=== PATIENT | female | born 1990 | race Two or more races ===

== ENCOUNTER 2016-10-15 14:21 | Emergency (ER) | payer OTHER ==
--- NOTE | 2016-10-15 14:40 | ER Document Report ---
ED Medical Screen (RME) - General Stated Complaint: VOMITING Notes: 26 yo 9 wks gestation c/o n/v since Jul. Seen by OB yesterday for same, given phenergan PO but still vomiting. Told to come to ER. No abdominal pain or vaginal bleeding - Related Data Allergies/Adverse Reactions: No Known Allergies Allergy (Unverified 10/15/16 14:37) Physical Exam - Vital signs Vitals: Temp Pulse Resp BP Pulse Ox 98.0 F 91 16 114/73 100 10/15/16 14:26 10/15/16 14:26 10/15/16 14:26 10/15/16 14:26 10/15/16 14:26 Course - Vital Signs Vital signs: Temp Pulse Resp BP Pulse Ox 98.0 F 91 16 114/73 100 10/15/16 14:26 10/15/16 14:26 10/15/16 14:26 10/15/16 14:26 10/15/16 14:26
[2016-10-15 15:02] LABS: ABSOLUTE EOSINOPHILS # (AUTO) 0.1 10^3/uL (0.0-0.6); ABSOLUTE LYMPHOCYTES (AUTO) 1.4 10^3/uL (0.5-4.7); ABSOLUTE MONOCYTES (AUTO) 0.5 10^3/uL (0.1-1.4); ABSOLUTE NEUT (AUTO) 4.9 10^3/uL (1.7-8.2); BASOPHILS % (AUTO) 0.5 % (0-2); EOSINOPHILS % (AUTO) 0.8 % (0-6); HEMATOCRIT 34.4 % (36.0-47.0); HEMOGLOBIN 11.2 g/dL (12.0-15.5); HGB HCT DIFFERENCE -0.8; LYMPHOCYTES % (AUTO) 20.2 % (13-45); MEAN CORPUSCULAR HEMOGLOBIN 25.6 pg (27.0-33.4); MEAN CORPUSCULAR HGB CONC 32.4 g/dL (32.0-36.0); MEAN CORPUSCULAR VOLUME 79 fl (80-97); MONOCYTES % (AUTO) 7.3 % (3-13); RED BLOOD COUNT 4.37 10^6/uL (3.72-5.28); RED CELL DISTRIBUTION WIDTH 18.4 % (11.5-14.0); SEGMENTED NEUTROPHILS % (AUTO) 71.2 % (42-78); WHITE BLOOD COUNT 6.9 10^3/uL (4.0-10.5)
[2016-10-15 15:10] LABS: APPEARANCE,URINE CLOUDY; BILIRUBIN,URINE NEGATIVE (NEGATIVE); GLUCOSE, URINE NEGATIVE (NEGATIVE); KETONES,URINE 20 mg/dL (NEGATIVE); LEUKOCYTE ESTERASE,URINE LARGE (NEGATIVE); NITRITE,URINE NEGATIVE (NEGATIVE); PROTEIN,URINE 100 mg/dL (NEGATIVE); URINE SPECIFIC GRAVITY 1.033
[2016-10-15 15:22] LABS: ALANINE AMINOTRANSFERASE 21 U/L (9-52); ALBUMIN 4.8 g/dL (3.5-5.0); ALKALINE PHOSPHATASE 55 U/L (38-126); ANION GAP 12 (5-19); ASPARTATE AMINO TRANSFERASE 25 U/L (14-36); BILIRUBIN,DIRECT 0.1 mg/dL (0.0-0.4); BILIRUBIN,TOTAL 0.5 mg/dL (0.2-1.3); BLOOD UREA NITROGEN 14 mg/dL (7-20); CALCIUM 10.3 mg/dL (8.4-10.2); CARBON DIOXIDE 27 mmol/L (22-30); CHLORIDE 102 mmol/L (98-107); GLUCOSE 87 mg/dL (75-110); SODIUM 140.7 mmol/L (137-145)
[2016-10-15] MEDS ORDERED: NORMAL SALINE 1000 ML 2,000 ML IV ONE (18:01)
--- NOTE | 2016-10-15 18:02 | ER Document Report ---
ED GI/ - General Chief Complaint: Nausea/Vomiting Stated Complaint: VOMITING Time seen by provider: 18:02 Mode of Arrival: Ambulatory Information source: Patient Notes: 26-year-old is complaining of persistent nausea and vomiting with this . She is 9 weeks with an IUP shown on ultrasound 2 weeks ago. She was told to come into the emergency department for dehydration if the Phenergan pills do not work. in the last 24 hours She was onDicligis prior to that which did not help. She is unable to keep the Phenergan pills down but she is willing to try a Phenergan suppository in the emergency department. No fever or chills. No abdominal pain. No vaginal bleeding. No dysuria. TRAVEL OUTSIDE OF THE [place] IN LAST 30 DAYS: No - Related Data Allergies/Adverse Reactions: No Known Allergies Allergy (Unverified 10/15/16 14:37) Past Medical History - General Information source: Patient - Social History Smoking Status: Never Smoker Chew tobacco use (# tins/day): No Frequency of alcohol use: None Drug Abuse: None Lives with: Spouse/Significant other Family History: Reviewed & Not Pertinent Patient has suicidal ideation: No Patient has homicidal ideation: No - Medical History Notes: Renal/ Medical History: Denies: Hx Peritoneal Dialysis Review of Systems - Review of Systems Constitutional: No symptoms reported EENT: No symptoms reported Cardiovascular: No symptoms reported Respiratory: No symptoms reported Gastrointestinal: See HPI Genitourinary: No symptoms reported Female Genitourinary: No symptoms reported Musculoskeletal: No symptoms reported Skin: No symptoms reported Hematologic/Lymphatic: No symptoms reported Neurological/Psychological: No symptoms reported Physical Exam - Vital signs Vitals: Temp Pulse Resp BP Pulse Ox 98.0 F 91 16 114/73 100 10/15/16 14:26 10/15/16 14:26 10/15/16 14:26 10/15/16 14:26 10/15/16 14:26 Interpretation: Normal - Notes Notes: Looks dry - General General appearance: Alert In distress: None - HEENT Head: Normocephalic, Atraumatic Eyes: Normal Conjunctiva: Normal Pupils: PERRL Neck: Supple. No: Lymphadenopathy - Respiratory Respiratory status: No respiratory distress Chest status: Nontender Breath sounds: Normal Chest palpation: Normal - Cardiovascular Rhythm: Regular Heart sounds: Normal auscultation Murmur: No - Abdominal Inspection: Normal Distension: No distension Bowel sounds: Normal Tenderness: Nontender. No: Tender Organomegaly: No organomegaly. No: Hepatomegaly, Splenomegaly - Back Back: Normal, Nontender. No: CVA tenderness - Extremities General upper extremity: Normal inspection, Nontender, Normal color, Normal ROM , Normal temperature General lower extremity: Normal inspection, Nontender, Normal color, Normal ROM , Normal temperature, Normal weight bearing. No: Nikki's sign - Neurological Neuro grossly intact: Yes Cognition: Normal Orientation: AAOx4 [place] Coma Scale Eye Opening: Spontaneous [place] Coma Scale Verbal: Oriented [place] Coma Scale Motor: Obeys Commands [place] Coma Scale Total: 15 Speech: Normal Motor strength normal: LUE, RUE, LLE, RLE Sensory: Normal - Psychological Associated symptoms: Normal affect, Normal mood - Skin Skin Temperature: Warm Skin Moisture: Dry Skin Color: Normal Skin irregularity: negative: Rash Course - Re-evaluation Re-evalutation: 10/15/16 19:49 2 L normal saline infused, urine culture was added, I will treat her f with Macrobid T1 plus bacteria comes back a urinary tract infection, Phenergan suppositories helped take away her nausea so I will prescribe that, she is eating soup and drank po's/ crackers without vomiting. 10/18/16 12:01 - Vital Signs Vital signs: Temp Pulse Resp BP Pulse Ox 97.9 F 88 16 110/80 100 10/15/16 20:20 10/15/16 20:20 10/15/16 14:26 10/15/16 20:20 10/15/16 20:20 - Laboratory Result Diagrams: 10/15/16 14:45 10/15/16 14:45 Laboratory results interpreted by me: 10/15/16 10/15/16 10/15/16 14:45 14:45 14:45 Hgb 11.2 L Hct 34.4 L MCV 79 L MCH 25.6 L RDW 18.4 H Creatinine 0.50 L Calcium 10.3 H Urine Protein 100 H Urine Ketones 20 H Urine Urobilinogen 2.0 H Ur Leukocyte Esterase LARGE H Urine HCG, Qual 10/15/16 14:45 Hgb Hct MCV MCH RDW Creatinine Calcium Urine Protein Urine Ketones Urine Urobilinogen Ur Leukocyte Esterase Urine HCG, Qual POSITIVE H Discharge - Discharge Clinical Impression: Dehydration, First trimester Vomiting Qualifiers: Vomiting type: unspecified Vomiting Intractability: non-intractable Nausea presence: with nausea Qualified Code(s): R11.2 - Nausea with vomiting, unspecified Condition: Good Disposition: HOME, SELF-CARE Instructions: Nausea or Vomiting, Nonspecific ([facility]), Dehydration ([facility]), ([facility]), Nitrofurantoin ([facility]) Additional Instructions: See your [facility] doctor for follow-up tomorrow Phenergan suppositories can be used every 6 hours for nausea Drink and eat frequently during the day urine culture is pending to er if worse Please complete the patient satisfaction survey if you get one, and return it.. If you do not receive a survey, then you can go to the [facility] website, [email or web address] and place your comments about your very good care. Thank you very much. It was a pleasure being your medical provider today. Prescriptions: Promethazine HCl [Phenergan 25 mg Supp.rect] 25 mg IN Q4HP PRN #24 supp.rect PRN Reason: Nitrofurantoin/Nitrofuran Mac [Macrobid 100 mg Capsule] 100 mg PO BID #14 capsule
[2016-10-15] MEDS ORDERED: PROMETHAZINE HCL 25 MG SUPP.RECT PR ONE (18:09)
[2016-10-15] MEDS ORDERED: NITROFURANTOIN MONOHYD/M-CRYST 100 MG CAPSULE PO ONE (19:51)
[2016-10-15 20:39] VITALS: BP 110/80
== END 2016-10-15 20:29 | disposition home or self-care (01) ==
LOC: ER 14:21
DX: O21.9 Vomiting of pregnancy, unspecified (principal); O99.281 Endocrine, nutritional and metabolic diseases complicating pregnancy, first trimester; E86.0 Dehydration; Z3A.09 9 weeks gestation of pregnancy
CPT/HCPCS: 99283; 96360; 96361; 36415; 87086; 85025; 81025; 80053; 81001; J3490; J7030